=== PATIENT | female | born 1970 | race Caucasian/White ===

== ENCOUNTER → 2016-05-06 | Outpatient (CLI) | payer OTHER ==
--- NOTE | 2016-05-06 10:33 | MM ---
Reason for exam: follow-up at short interval from prior study. Last mammogram was performed 6 months ago. History: Patient had first child at age 30. Physical Findings: Nurse did not find any significant physical abnormalities on exam. MG Diagnostic Mammo RT w CAD CC and MLO view(s) were taken of the right breast. Prior study comparison: November 07, 2015, right breast MG work up mamm w CAD RT. There are scattered fibroglandular densities. There is no discrete abnormality. These results were verbally communicated with the patient and result sheet given to the patient on 05/06/16. ASSESSMENT: Benign, BI-RAD 2 RECOMMENDATION: Return to routine screening mammogram schedule for both breasts. Back on schedule.
== END | disposition home or self-care (01) ==
LOC: RADMAMWWP 09:35
PROVIDERS: ATTEND Internal Medicine
DX: R92.8 Other abnormal and inconclusive findings on diagnostic imaging of breast (principal)

== ENCOUNTER → 2016-11-19 | Outpatient (CLI) | payer OTHER ==
--- NOTE | 2016-11-21 07:06 | MM ---
Reason for exam: screening (asymptomatic). Last mammogram was performed 6 months ago. History: Patient had first child at age 30. Physical Findings: A clinical breast exam by your physician is recommended on an annual basis and results should be correlated with mammographic findings. MG Screening Mammo w CAD Bilateral CC and MLO view(s) were taken. Prior study comparison: May 06, 2016, right breast MG diagnostic mammo RT w CAD. November 07, 2015, right breast MG work up mamm w CAD RT. There is a 8.3mm focal asymmetry in the upper outer quadrant of left breast at middle depth. ASSESSMENT: Incomplete: need additional imaging evaluation, BI-RAD 0 RECOMMENDATION: Special view mammogram of the left breast. If lesion persists on supplemental views, image directed ultrasound is recommended. [facility] will attempt to contact patient to return for supplemental views and ultrasound if indicated.
== END | disposition home or self-care (01) ==
LOC: RADMAMWWP 08:06
PROVIDERS: ATTEND Internal Medicine
DX: Z12.31 Encounter for screening mammogram for malignant neoplasm of breast (principal)

== ENCOUNTER → 2016-11-27 | Outpatient (CLI) | payer OTHER ==
--- NOTE | 2016-11-27 11:16 | MM ---
Reason for exam: additional evaluation requested from abnormal screening. Last mammogram was performed less than 1 month ago. History: Patient had first child at age 30. Physical Findings: Nurse did not find any significant physical abnormalities on exam. MG Work Up Mamm w CAD LT CC, MLO, LM, spot compression CC, and spot compression MLO view(s) were taken of the left breast. Prior study comparison: November 19, 2016, bilateral MG screening mammo w CAD. May 06, 2016, right breast MG diagnostic mammo RT w CAD. November 07, 2015, right breast MG work up mamm w CAD RT. There are scattered fibroglandular densities. The questioned central upper outer quadrant focal asymmetry appears to disperse on additional views. A precautionary 6 month follow up is recommended. These results were verbally communicated with the patient and result sheet given to the patient on 11/27/16. ASSESSMENT: Probably benign, BI-RAD 3 RECOMMENDATION: Follow-up diagnostic mammogram of the left breast in 6 months.
== END | disposition home or self-care (01) ==
LOC: RADMAMWWP 09:58
PROVIDERS: ATTEND Internal Medicine
DX: R92.8 Other abnormal and inconclusive findings on diagnostic imaging of breast (principal)

== ENCOUNTER → 2017-06-16 | Outpatient (CLI) | payer BC ==
--- NOTE | 2017-06-16 12:02 | MM ---
Reason for exam: follow-up at short interval from prior study. Last mammogram was performed 7 months ago. History: Patient had first child at age 30. Physical Findings: Nurse did not find any significant physical abnormalities on exam. MG Diagnostic Mammo LT w CAD CC and MLO view(s) were taken of the left breast. Prior study comparison: November 27, 2016, left breast MG work up mamm w CAD LT. November 19, 2016, bilateral MG screening mammo w CAD. The breast tissue is heterogeneously dense. This may lower the sensitivity of mammography. There is no discrete abnormality. No significant new findings when compared with previous films. These results were verbally communicated with the patient and result sheet given to the patient on 06/16/17. ASSESSMENT: Negative, BI-RAD 1 RECOMMENDATION: Return to routine screening mammogram schedule for both breasts. Back on schedule.
== END | disposition home or self-care (01) ==
LOC: RADMAMWWP 08:44
PROVIDERS: ATTEND Internal Medicine
DX: R92.8 Other abnormal and inconclusive findings on diagnostic imaging of breast (principal)
CPT/HCPCS: 77065

== ENCOUNTER → 2017-12-22 | Outpatient (CLI) | payer BC ==
--- NOTE | 2017-12-24 11:42 | MM ---
Reason for exam: screening (asymptomatic). Last mammogram was performed 6 months ago. History: Patient had first child at age 30. Physical Findings: A clinical breast exam by your physician is recommended on an annual basis and results should be correlated with mammographic findings. MG 3D Screening Mammo W/Cad Bilateral CC and MLO view(s) were taken. Prior study comparison: June 16, 2017, left breast MG diagnostic mammo LT w CAD. November 27, 2016, left breast MG work up mamm w CAD LT. There are scattered fibroglandular densities. No suspicious calcifications are seen. Focal asymmetry upper outer left breast 11.8cm from nipple. This finding is changed when compared with previous exams. ASSESSMENT: Incomplete: need additional imaging evaluation, BI-RAD 0 RECOMMENDATION: Special view mammogram of the left breast. If lesion persists on supplemental views, image directed ultrasound is recommended. [facility] will attempt to contact patient to return for supplemental views and ultrasound if indicated.
== END | disposition home or self-care (01) ==
LOC: RADMAMWWP 08:00
PROVIDERS: ATTEND Internal Medicine
DX: Z12.31 Encounter for screening mammogram for malignant neoplasm of breast (principal)
CPT/HCPCS: 77063; 77067

== ENCOUNTER → 2017-12-31 | Outpatient (CLI) | payer BC ==
--- NOTE | 2017-12-31 10:55 | MM ---
Reason for exam: additional evaluation requested from abnormal screening. Last mammogram was performed less than 1 month ago. History: Patient had first child at age 30. Physical Findings: Nurse did not find any significant physical abnormalities on exam. MG 3D Work Up W/Cad LT Spot compression CC, spot compression MLO, and LM view(s) were taken of the left breast. Prior study comparison: December 22, 2017, bilateral MG 3d screening mammo w/cad. June 16, 2017, left breast MG diagnostic mammo LT w CAD. The breast tissue is heterogeneously dense. This may lower the sensitivity of mammography. Asymmetric breast tissue left outer inferior breast is stable. No persistent suspicious lesion. These results were verbally communicated with the patient and result sheet given to the patient on 12/31/17. ASSESSMENT: Negative, BI-RAD 1 RECOMMENDATION: Return to routine screening mammogram schedule for both breasts.
== END | disposition home or self-care (01) ==
LOC: RADMAMWWP 10:03
PROVIDERS: ATTEND Internal Medicine
DX: R92.8 Other abnormal and inconclusive findings on diagnostic imaging of breast (principal)
CPT/HCPCS: 77061; 77065

== ENCOUNTER → 2020-02-21 | Outpatient (CLI) | payer BC ==
--- NOTE | 2020-02-22 14:11 | MM ---
Reason for exam: screening (asymptomatic). Last mammogram was performed 1 year and 1 month ago. History: Patient had first child at age 30. Took hormonal contraceptives for 2 years. Physical Findings: A clinical breast exam by your physician is recommended on an annual basis and results should be correlated with mammographic findings. MG Screening Mammo w CAD Bilateral CC and MLO view(s) were taken. Prior study comparison: January 29, 2019, bilateral MG screening mammo w CAD. December 31, 2017, left breast MG 3d work up w/cad LT. The breast tissue is heterogeneously dense. This may lower the sensitivity of mammography. No significant changes when compared with prior studies. ASSESSMENT: Benign, BI-RAD 2 RECOMMENDATION: Routine screening mammogram of both breasts in 1 year.
== END | disposition home or self-care (01) ==
LOC: RADMAMWWP 10:13
PROVIDERS: ATTEND Internal Medicine
DX: Z12.31 Encounter for screening mammogram for malignant neoplasm of breast (principal)
CPT/HCPCS: 77067

== ENCOUNTER → 2021-02-21 | Outpatient (CLI) | payer BC ==
--- NOTE | 2021-02-25 11:44 | MM ---
Reason for exam: screening (asymptomatic). Last mammogram was performed 1 year ago. History: Patient had first child at age 30. Took hormonal contraceptives for 2 years. Physical Findings: A clinical breast exam by your physician is recommended on an annual basis and results should be correlated with mammographic findings. MG 3D Screening Mammo W/Cad Bilateral CC and MLO view(s) were taken. Prior study comparison: February 21, 2020, bilateral MG screening mammo w CAD. January 29, 2019, bilateral MG screening mammo w CAD. The breast tissue is heterogeneously dense. This may lower the sensitivity of mammography. No significant changes when compared with prior studies. ASSESSMENT: Negative, BI-RAD 1 RECOMMENDATION: Routine screening mammogram of both breasts in 1 year.
== END | disposition home or self-care (01) ==
LOC: RADMAMWWP 10:03
PROVIDERS: ATTEND Internal Medicine
DX: Z12.31 Encounter for screening mammogram for malignant neoplasm of breast (principal)
CPT/HCPCS: 77063; 77067

== ENCOUNTER 2021-05-18 18:55 | Emergency (ER) | payer BC ==
[2021-05-18] MEDS ORDERED: LIDOCAINE/EPINEPHR/TETRACAINE 5 ML BOTTLE TOPICAL ONE (19:12)
[2021-05-18] MEDS ORDERED: TOPICAL SKIN ADHESIVE 1 EACH AMP TOPICAL ONE (19:13)
[2021-05-18] MEDS ORDERED: DIPH,PERTUS(ACELL)TETVAC-LF 0.5 ML VIAL IM ONE (19:14)
--- NOTE | 2021-05-18 19:18 | ED ---
Wound/Laceration HPI - General Source: police, RN notes reviewed Mode of arrival: ambulatory Limitations: no limitations - History of Present Illness Onset/Timin -: minutes(s) <TimurVaibhav - Last Filed: 05/18/21 19:46> <Ritu Georges - Last Filed: 05/19/21 09:41> - General Chief Complaint: Wound/Laceration Stated Complaint: finger lac Time Seen by Provider: 05/18/21 19:06 - History of Present Illness Initial Comments: Ofloxacin ear drops, 5 drops to the affected ear twice daily for at least 7 days or as directed by the end nose and throat doctor. Call Thursday and set up a follow-up with the research executive. Return here to the ER if any symptoms worsen or problems arise You can give [id number] Tylenol and/or ibuprofen for pain control. (Vaibhav Ding) - Related Data Allergies Allergy/AdvReac Type Severity Reaction Status Date / Time No Known Allergies Allergy Verified 05/18/21 18:57 Review of Systems ROS Other: All systems not noted in ROS Statement are negative. <TimurVaibhav - Last Filed: 05/18/21 19:46> ROS Other: All systems not noted in ROS Statement are negative. <Ritu Georges - Last Filed: 05/19/21 09:41> ROS Statement: Those systems with pertinent positive or pertinent negative responses have been documented in the HPI. Past Medical History Past Medical History: No Reported History History of Any Multi-Drug Resistant Organisms: None Reported Past Surgical History: No Surgical Hx Reported Past Psychological History: No Psychological Hx Reported Smoking Status: Never smoker Past Alcohol Use History: None Reported Past Drug Use History: None Reported <TimurVaibhav - Last Filed: 05/18/21 19:46> General Exam Limitations: no limitations General appearance: alert, in no apparent distress Head exam: Present: atraumatic, normocephalic, normal inspection Eye exam: Present: normal appearance, EOMI Neck exam: Present: normal inspection. Absent: tenderness, meningismus, lymphadenopathy Respiratory exam: Present: normal lung sounds bilaterally. Absent: respiratory distress, wheezes, rales, rhonchi, stridor Cardiovascular Exam: Present: regular rate, normal rhythm, normal heart sounds. Absent: systolic murmur, diastolic murmur, rubs, gallop, clicks GI/Abdominal exam: Present: soft. Absent: tenderness Extremities exam: Present: full ROM (Full tendon strength in all planes with regard to phalanges, hand, and wrist. Pulses are intact. Capillary refill is normal), normal capillary refill, other (Superficial laceration noted to the left fourth finger overlying the middle phalanx. This only goes through the dermis. No evidence of tendon involvement.). Absent: normal inspection, tenderness Back exam: Present: normal inspection Neurological exam: Present: alert, oriented X3, CN II-XII intact. Absent: motor sensory deficit <Vaibhav Ding - Last Filed: 05/18/21 19:46> - General Exam Comments Initial Comments: Healthy-appearing female in no acute distress. Patient does not appear to be ill or toxic. (Vaibhav Ding) Course Vital Signs 05/18/21 05/18/21 18:57 19:58 Temperature 97.3 F L 98.0 F Pulse Rate 82 86 Respiratory 16 18 Rate Blood Pressure 127/72 128/70 O2 Sat by Pulse 99 98 Oximetry Procedures - Laceration Laceration #1 Consent Obtained: verbal consent Site: upper extremity (Left fourth finger) Size (cm): 2 Description: linear Depth: simple, single layer Sedation/Analgesia: none Anesthesia Technique: local infiltration Pre-repair: wound explored Type of Sutures: other (Tissue adhesive) Patient Tolerated Procedure: well <Vaibhav Ding - Last Filed: 05/18/21 19:46> - Laceration Laceration #1 Additional Comments: Local anesthesia with let solution, , no foreign body noted, full tendon strength in all planes with regard to phalanges. No other injuries. (Vaibhav Ding) Medical Decision Making <Vaibhav Ding - Last Filed: 05/18/21 19:46> <Ritu Georges - Last Filed: 05/19/21 09:41> - Medical Decision Making Patient counseled on wound care. Counseled on signs and symptoms of infection. Return to follow parameters discussed. All questions answered. Tetanus was updated. Patient was told to return to the ER for any signs or symptoms worsen. Told to return immediately if any other problems arise. All questions answered. Treatment plan discussed. Patient in agreement Every effort has been made to ensure accuracy of this dictation. However, due to the limitations of electronic medical records and dictation devices, errors in charting still occur. No indication for imaging as the wound is very superficial. Patient was warned to watch for signs and symptoms of infection. (Vaibhav Ding) Initial comments incorrectly dictated - patient is a 50 year old female who presents with left 4th digit laceration from a knife while watching dishes. I was available for consultation in the emergency department. The history and physical exam were done by the midlevel provider. I was consulted for this patients care. I reviewed the case with the midlevel provider and based on their presentation of the patient, I agree with the assessment, medical decision making and plan of care as documented. Chart was dictated using [employer] dictation software. Attempts were made to correct any dictation errors however some typographical errors may persist. Patient was seen during a national state of emergency due to the Covid-19 pandemic. (Ritu Georges) Disposition Is patient prescribed a controlled substance at d/c from ED?: No Time of Disposition: 19:46 <Vaibhav Ding - Last Filed: 05/18/21 19:46> <Ritu Georges - Last Filed: 05/19/21 09:41> Clinical Impression: Laceration of left ring finger without damage to nail Disposition: HOME SELF-CARE Condition: Good Instructions (If sedation given, give patient instructions): Skin Adhesive Care (ED) Additional Instructions: Follow-up with your regular physician as directed. Return to the ER immediately if any symptoms worsen, new symptoms arise, or any other problems develop. Referrals: Steff Tam MD [Primary Care Provider] - 1-2 days (Follow-up as needed)
[2021-05-18 19:59] VITALS: BP 128/70; PULSE 86; RESP 18; TEMP 98
== END 2021-05-18 19:58 | disposition home or self-care (01) ==
LOC: EC 18:55
DX: S61.219A Laceration without foreign body of unspecified finger without damage to nail, initial encounter (principal)
CPT/HCPCS: 12001; 90471; 90715; 99282

== ENCOUNTER → 2022-02-24 | Outpatient (CLI) | payer BC ==
--- NOTE | 2022-02-24 16:30 | MM ---
Reason for Exam: Screening (asymptomatic). Last mammogram was performed 1 year(s) and 1 month(s) ago. Patient History: Menarche at age 10. First Full-Term at age 30. Late child-bearing (after 30). Patient used Hormonal Contraceptives for 2 years. Risk Values: Fabiola 5 year model risk: 1.5%. NCI Lifetime model risk: 11.6%. Prior Study Comparison: 01/29/2019 Bilateral Screening Mammogram, [facility]. 02/21/2020 Bilateral Screening Mammogram, [facility]. 02/21/2021 Bilateral Screening Mammogram, [facility]. Tissue Density: There are scattered fibroglandular densities. Findings: Analyzed By CAD. Benign-appearing bilateral axillary lymph nodes are redemonstrated. Stable asymmetric prominent tissue inferiorly in the left breast noted. There is no suspicious group of microcalcifications or new suspicious mass in either breast. Overall Assessment: Negative, BI-RAD 1 Management: Screening Mammogram of both breasts in 1 year. A clinical breast exam by your physician is recommended on an annual basis and results should be correlated with mammographic findings. Electronically signed and approved by: Terence Simental M.D.
== END | disposition home or self-care (01) ==
LOC: RADMAMWWP 08:28
PROVIDERS: ATTEND Internal Medicine
DX: Z12.31 Encounter for screening mammogram for malignant neoplasm of breast (principal)
CPT/HCPCS: 77063; 77067

== ENCOUNTER → 2023-03-19 | Outpatient (CLI) | payer BC ==
--- NOTE | 2023-03-20 19:35 | MM ---
Reason for Exam: Screening (asymptomatic). Last screening mammogram was performed 12 month(s) ago. Patient History: Menarche at age 10. First Full-Term at age 30. Late child-bearing (after 30). Patient used Hormonal Contraceptives for 2 years. Last menstrual period: 02/25/2023 Risk Values: Fabiola 5 year model risk: 1.6%. NCI Lifetime model risk: 11.4%. Prior Study Comparison: 02/21/2020 Bilateral Screening Mammogram, [facility]. 02/21/2021 Bilateral Screening Mammogram, [facility]. 02/24/2022 Bilateral MG 3D screening mammo w/cad, [facility]. Tissue Density: There are scattered fibroglandular densities. Findings: Analyzed By CAD. There is no suspicious group of microcalcifications or new suspicious mass in either breast. Overall Assessment: Negative, BI-RAD 1 Management: Screening Mammogram of both breasts in 1 year. . Patient should continue monthly self-breast exams. A clinical breast exam by your physician is recommended on an annual basis. This exam should not preclude additional follow-up of suspicious palpable abnormalities. Note on Fabiola scores and lifetime risk: 1. A Fabiola score greater than 3% is considered moderate risk. If this is the case, consider specialist referral to assess eligibility for a risk reducing agent. 2. If overall lifetime risk for the development of breast cancer is 20% or higher, the patient may qualify for future screening with alternating mammogram and breast MRI. Electronically signed and approved by: Dipika Resendiz M.D. Radiologist
== END | disposition home or self-care (01) ==
LOC: RADMAMWWP 15:23
PROVIDERS: ATTEND Internal Medicine
DX: Z12.31 Encounter for screening mammogram for malignant neoplasm of breast (principal)
CPT/HCPCS: 77063; 77067

== ENCOUNTER → 2023-11-04 | Outpatient (CLI) | payer BC ==
--- NOTE | 2023-11-04 13:05 | XR ---
EXAMINATION TYPE: XR hand complete 3 views RT, XR shoulder complete 3 views LT DATE OF EXAM: 11/04/2023 COMPARISON: NONE HISTORY: 53-year-old female [id number] LT SHLD PAIN, RT HAND PAIN FINDINGS: Right hand: Minimal early marginal spurring at the first CMC joint. No acute fracture, subluxation, or dislocatio n is seen. Left shoulder: There is mild joint space narrowing at the AC joint. Otherwise, no acute fracture, subluxation, or l esion is seen. Subacromial space is preserved. IMPRESSION: 1. Right hand: No acute osseous abnormality seen. 2. Left shoulder: Mild AC joint OA. No acute osseous abnormality seen.
== END | disposition home or self-care (01) ==
LOC: RADXRYALE 11:40
PROVIDERS: ATTEND Internal Medicine
DX: M19.012 Primary osteoarthritis, left shoulder (principal); M79.641 Pain in right hand

== ENCOUNTER → 2024-03-21 | Outpatient (CLI) | payer BC ==
--- NOTE | 2024-03-21 10:33 | MM ---
Reason for Exam: Screening (asymptomatic). Last screening mammogram was performed 12 month(s) ago. Patient History: Menarche at age 10. First Full-Term at age 30. Late child-bearing (after 30). Patient used Hormonal Contraceptives for 2 years. Risk Values: Fabiola 5 year model risk: 1.6%. NCI Lifetime model risk: 11.2%. Prior Study Comparison: 02/21/2021 Bilateral Screening Mammogram, [facility]. 02/24/2022 Bilateral MG 3D screening mammo w/cad, [facility]. 03/19/2023 Bilateral MG 3D screening mammo w/cad, [facility]. Tissue Density: There are scattered areas of fibroglandular density. Findings: Analyzed By CAD. Right breast: There is no suspicious group of microcalcifications or new suspicious mass. Left breast: There is no suspicious group of microcalcifications or new suspicious mass. Overall Assessment: Negative, BI-RAD 1 Management: Screening Mammogram of both breasts in [address] [facility] will attempt to contact patient to return for supplemental views and ultrasound if indicated. Patient should continue monthly self-breast exams. A clinical breast exam by your physician is recommended on an annual basis. This exam should not preclude additional follow-up of suspicious palpable abnormalities. Note on Fabiola scores and lifetime risk: 1. A Fabiola score greater than 3% is considered moderate risk. If this is the case, consider specialist referral to assess eligibility for a risk reducing agent. 2. If overall lifetime risk for the development of breast cancer is 20% or higher, the patient may qualify for future screening with alternating mammogram and breast MRI. [facility], , 03/21/2024 10:16 AM. Electronically signed and approved by: Manny Rivas DO
== END | disposition home or self-care (01) ==
LOC: RADMAMWWP 10:00
PROVIDERS: ATTEND Internal Medicine
DX: Z12.31 Encounter for screening mammogram for malignant neoplasm of breast (principal); R92.323 Mammographic fibroglandular density, bilateral breasts
CPT/HCPCS: 77063; 77067